=== PATIENT | male | born 1990 | race Caucasian/White ===

== ENCOUNTER 2024-09-09 18:55 | Emergency (ER) | payer BC, SELFPAY ==
[2024-09-09 18:56] VITALS: BMI 30.1
[2024-09-09 19:52] VITALS: BP 143/87; PULSE 66; RESP 18; TEMP 36.9; O2SAT 98
--- NOTE | 2024-09-09 20:16 | PD.EDUPEX ---
Upper Extremity Injury RME/HPI General Chief Complaint: Extremity Injury, Upper Stated Complaint: RIGHT HAND SWELLING AFTER CAT BITE, REDNESS Time Seen by Provider: 09/09/24 19:50 Source: patient Arrival date/time: 09/09/24 18:55 34-year-old male presents emergency department complaining of right hand swelling and redness after had a cat bite that occurred this previous Sunday. Patient reports seeing primary care provider yesterday was prescribed antibiotics and is only taken 1 dose but has not improved. Patient [place] any fever, chills, nausea vomiting, cough, shortness of breath, or any other associated symptom. Mode of arrival: ambulatory Limitations: no limitations Related Data Previous Rx's ?Medication ?Instructions ?Recorded amoxicillin 875 mg-potassium 1 tab PO BID 10 days #20 tabs 09/09/24 clavulanate 125 mg tablet Allergies Allergy/AdvReac Type Severity Reaction Status Date / Time No Known Allergies Allergy Verified 09/09/24 18:58 Review of Systems Review of Systems Systems Reviewed: All systems reviewed, normal except as documented Constitutional Constitutional: Reports system reviewed and no additional complaints, except as documented, Denies body ache(s), Denies chills and Denies fever(s) Eyes Eyes: Reports system reviewed and no additional complaints, except as documented and Denies change in vision ENT Ears, Nose, Mouth, and Throat: Reports system reviewed and no additional complaints, except as documented, Denies disequilibrium, Denies dizziness, Denies sore throat and Denies vertigo Cardiovascular Cardiovascular: Reports system reviewed and no additional complaints, except as documented, Denies chest pain and Denies dyspnea Respiratory Respiratory: Reports system reviewed and no additional complaints, except as documented, Denies chest congestion, Denies cough and Denies dyspnea Gastrointestinal Gastrointestinal: Reports system reviewed and no additional complaints, except as documented, Denies abdominal pain, Denies nausea and Denies vomiting Musculoskeletal Musculoskeletal: Reports system reviewed and no additional complaints, except as documented, Denies abnormal gait and Denies arthralgias Integumentary/Breasts Skin/Breast: Reports system reviewed and no additional complaints, except as documented, Reports erythema, Denies rash and Reports wounds Neurologic Neurologic: Reports system reviewed and no additional complaints, except as documented, Denies abnormal gait, Denies disequilibrium, Denies dizziness and Denies vertigo Past Medical History Social History SMOKING STATUS: Never smoker ED Exam General Limitations: Present no limitations General appearance: Present alert and in no apparent distress Head Head exam: Present atraumatic Eye Eye exam: Present normal appearance, PERRL and EOMI ENT ENT exam: Present normal exam, normal oropharynx and mucous membranes moist Neck Neck exam: Present normal inspection, full ROM and trachea midline Chest Chest inspection: Present normal inspection and symmetric chest wall rise Respiratory Respiratory exam: Present normal lung sounds bilaterally Cardiovascular Cardiovascular exam: Present regular rate, normal rhythm and normal heart sounds Abdominal Exam Abdominal exam: Present soft and normal bowel sounds Extremities Exam Extremities exam: Present normal inspection and full ROM Expanded Upper Extremity Exam Hand exam: Present tenderness (Right hand), swelling (+1 right hand) and erythema (Right hand) Hand L/R back image: 1. Redness and edema with no induration but small scabbed abrasions from cat bite. Vascular exam: Normal capillary refill Back Exam Back exam: Present normal inspection and full ROM Neurological Exam Neurological exam: Present alert, oriented X3 and CN II-XII intact Psychiatric Psychiatric exam: Present normal affect and normal mood Skin Skin exam: Present warm, dry and erythema Course Quality Measures none Orders Category Date Time Status cefTRIAXone [Rocephin] 1,000 mg Med 09/09/24 20:16 Discontinued Lidocaine 1% 20 ml [Xylocaine 1% 20 ML] 2.1 ml IM X1 Vital Signs Vital signs: Vital Signs Temperature 98.5 F 09/09/24 19:52 Pulse Rate 66 09/09/24 19:52 Respiratory Rate 18 09/09/24 19:52 Blood Pressure 143/87 H 09/09/24 19:52 Pulse Oximetry (%) 98 09/09/24 19:52 Oxygen Delivery Method Room Air 09/09/24 19:52 98% room air within normal limits Extremity Injury MDM Narrative MDM Narrative:: 34-year-old male presents emergency department complaining of right hand swelling and redness after had a cat bite that occurred this previous Sunday. Patient reports seeing primary care provider yesterday was prescribed antibiotics and is only taken 1 dose but has not improved. Patient denies any fever, chills, nausea vomiting, cough, shortness of breath, or any other associated symptom. Patient reports is up-to-date with tetanus vaccine. On exam patient's right hand small scab abrasions from cat bite and redness with edema no obvious induration or visible abscess. Patient appears nontoxic and hemodynamically stable Patient given IM Rocephin and discharged on Augmentin. Patient instructed close follow-up with primary care provider and return to emergency department in 3 days for reevaluation. Patient instructed to return sooner for any worsening symptoms or as needed. Patient data External records reviewed:: None Clinical information provided by:: patient Social determinants that could affect healthcare access:: none Patient has the following chronic illnesses:: N/A How is presenting disease/condition affected by chronic disease/condition?: no chronic disease Evaluation data The following diagnostics were reviewed and interpreted by me:: other (specify) (N/A) Lab and/or radiology exams considered but not ordered:: N/A Interpretation Summary: N/A Medications / Prescriptions Medications or Prescriptions considered but not ordered:: Ordered Medication administrations:: Medication Administration History Discontinued Medications Ceftriaxone Sodium 1,000 mg/ (Lidocaine HCl 2.1 ml) 0 mg IM X1 ONE Stop: 09/09/24 20:17 Last Admin: 09/09/24 20:24 Dose: 2.1 mg Documented By: OA Given Consultations Consultation(s) initiated? (list below): No Diagnosis Upper Extremity Injury Differential Diagnosis: other (Cellulitis, cat scratch disease, ) Most likely diagnosis given after review of the tests above:: Cellulitis Admission Indicated Admission indicated?: not indicated Admission Request Was there a request for admission?: No Disposition Plan Disposition Plan: Discharge Discharge Attestation Discharge Attestation: The patient and all family members were given an opportunity to ask questions and understood the discharge instructions. Discharge instructions specifically effects, indications for sooner follow up or return to the emergency department, and the expected course of current diagnosis. Patient condition: Stable Discharge Plan Plan Patient Disposition: HOME (Self Care) Disposition Comment: Stable Prescriptions/Referrals Prescriptions/Med Rec: New amoxicillin-pot clavulanate 875-125 mg tablet 1 tab PO BID 10 Days Qty: 20 0RF Problem List Clinical Impression: Cellulitis of hand, right Patient/Caregiver Discharge Instructions Discharge Activity: activity as tolerated Education Materials: Discharge Instructions for Cellulitis, ED Cellulitis Additional Instructions: Stop taking previous antibiotics that was prescribed by primary care provider. Take Augmentin as prescribed. Return to the emergency department in 3 days for reevaluation. Follow-up with primary care provider upon discharge. Return to emergency department for any worsening symptoms or as needed. Print Language: Thai Stand Alone Forms: [place] Award Info., Patient Portal Info Letter PA/ELECTRICIAN SUPERVISOR SUBSTATION Supervising Physician PA/ELECTRICIAN SUPERVISOR SUBSTATION Supervising Physician: Dr. Betancur
[2024-09-09] MEDS: cefTRIAXone 1,000 MG, LIDOCAINE 1% 20 ML 2.1 ML IM (20:24)
[2024-09-09 20:35] VITALS: RESP 18
== END 2024-09-09 20:35 | disposition home or self-care (01) ==
PROVIDERS: Emergency Provider Emergency Medicine
DX: S60.511A Abrasion of right hand, initial encounter (principal); L03.113 Cellulitis of right upper limb; W55.01XA Bitten by cat, initial encounter
CPT/HCPCS: 99283; J0696; J3490